=== PATIENT | female | born 1950 | race Caucasian/White ===

== ENCOUNTER 2022-07-12 10:24 | Emergency (ER) | payer OTHER ==
[2022-07-12 10:46] VITALS: RESP 18; BMI 22.1
[2022-07-12] MEDS ORDERED: ACETAMINOPHEN 1000 MG/100 ML BAG IVPB ONE (11:28)
[2022-07-12] MEDS ORDERED: ACETAMINOPHEN INJECTION 100 ML IVPB ONE (11:59)
[2022-07-12 12:38] LABS: BASO % 0.6 % (0-2.0); EOS % 2.7 % (0-4.5); HEMATOCRIT 37.8 % (32.4-45.2); HEMOGLOBIN 12.5 GM/dL (10.7-15.3); LYMPH % 36.3 % (8-40); MCH 28.4 pg (25.7-33.7); MCHC 33.1 g/dl (32.0-36.0); MEAN CELL VOLUME 85.8 fl (80-96); MEAN PLT VOLUME 9.2 fl (7.5-11.1); MONO % 6.6 % (3.8-10.2); NEUT % 53.8 % (42.8-82.8); PLATELET COUNT 218 10^3/uL (134-434); RBC 4.41 M/mm3 (3.60-5.2); RDW 14.1 % (11.6-15.6); WHITE BLOOD COUNT 7.5 K/mm3 (4.0-10.0)
[2022-07-12 13:11] LABS: CALCIUM 10.7 mg/dL (8.5-10.1); MAGNESIUM 1.9 mg/dL (1.8-2.4)
[2022-07-12 13:12] LABS: BLOOD UREA NITROGEN 25.8 mg/dL (7-18)
[2022-07-12 13:13] LABS: CREATININE 1.2 mg/dL (0.55-1.3)
[2022-07-12 13:15] LABS: BILIRUBIN,TOTAL 0.3 mg/dL (0.2-1); TOT PROT 7.4 g/dl (6.4-8.2)
[2022-07-12 15:43] VITALS: BP 132/93; PULSE 70; TEMP 97.8
== END 2022-07-12 18:51 | disposition home or self-care (01) ==
LOC: JER 10:24
PROC: 3E0333Z Introduction of Anti-inflammatory into Peripheral Vein, Percutaneous Approach (ICD-10-PCS; principal; 2022-07-12)
DX: M54.42 Lumbago with sciatica, left side (principal)
CPT/HCPCS: 36415; 72141-TC; 72146-TC; 72148-TC; 72170-TC-FY; 73502-TC-LT-FY; 80053; 83735; 85025; 93005; 93010; 96374; 99284-25

== ENCOUNTER 2024-07-06 16:27 | Emergency (ER) | payer OTHER ==
[2024-07-06 16:41] VITALS: BMI 22.3
[2024-07-06 17:19] LABS: BASO % 1.2 % (0-2.0); EOS % 3.8 % (0-4.5); HEMOGLOBIN 10.9 GM/dL (10.7-15.3); LYMPH % 27.9 % (8-40); MCH 28.4 pg (25.7-33.7); MCHC 31.9 g/dl (32.0-36.0); MEAN PLT VOLUME 9.4 fl (7.5-11.1); MONO % 7.9 % (3.8-10.2); NEUT % 59.2 % (42.8-82.8); PLATELET COUNT 236 10^3/uL (134-434); RBC 3.82 M/mm3 (3.60-5.2); RDW 18.5 % (11.6-15.6)
[2024-07-06 17:38] LABS: CHLORIDE 96 mmol/L (98-107); POTASSIUM 4.5 mmol/L (3.5-5.1); SODIUM 132 mmol/L (136-145)
[2024-07-06 17:40] LABS: ALBUMIN 3.1 g/dl (3.4-5.0); ANION GAP 10 mmol/L (4-13); BLOOD UREA NITROGEN 35.2 mg/dL (7-18); CALCIUM 9.8 mg/dL (8.5-10.1); CO2 26 mmol/L (21-32)
[2024-07-06 17:43] LABS: SGPT/ALT 432 U/L (13-61)
[2024-07-06 17:44] LABS: CREATININE 2.5 mg/dL (0.55-1.3); SGOT/AST 468 U/L (15-37)
[2024-07-06 17:45] LABS: BILIRUBIN,TOTAL 1.4 mg/dL (0.2-1); TOT PROT 8.7 g/dl (6.4-8.2)
[2024-07-06 17:46] LABS: ALK PHOS 676 U/L (45-117)
[2024-07-06 17:57] LABS: GLUCOSE,RANDOM 445 mg/dL (74-106)
[2024-07-06 18:20] LABS: ACTIVATED PTT 30.3 SECONDS (25.2-36.5)
[2024-07-06] MEDS ORDERED: INSULIN ASPART SLIDING SCALE (NOVOLOG) 1 VIAL SQ ONE (18:25)
[2024-07-06] MEDS: INSULIN (NOVOLOG) ASPART 100 UNITS/ML 10ML VIAL SQ ONE (20:22)
[2024-07-06 22:12] VITALS: BP 133/78; PULSE 79; RESP 18; TEMP 99.4
[2024-07-08 18:07] LABS: MITOCHONDRIAL AB <20.0 Units (0.0-20.0)
[2024-07-11 15:06] LABS: IG G QN IMMUNOGLOBULIN 2548 mg/dL (586-1602); IGG SUBCLASS 1 1871 mg/dL (248-810); IGG SUBCLASS 2 195 mg/dL (130-555); IGG SUBCLASS 3 31 mg/dL (15-102)
== END 2024-07-06 22:13 | disposition short-term general hospital (02) ==
LOC: JER 16:27
DX: R74.01 Elevation of levels of liver transaminase levels (principal)
CPT/HCPCS: 36415; 74181-TC; 76705-TC; 80053; 82248; 82784; 82787; 82962; 82977; 83516; 83883; 85025; 85610; 85730; 86038; 86376; 86705; 86707; 86708; 86850; 86900; 86901; 87350; 87517; 87522; 93005; 93010; 99285-25